=== PATIENT | female | born 1990 | race Caucasian/White ===

== ENCOUNTER 2016-03-18 13:56 | Emergency (ER) | payer OTHER ==
[2016-03-18 13:59] VITALS: BP 100/67; PULSE 117; RESP 17; TEMP 98.6; O2SAT 95
[2016-03-18] MEDS ORDERED: AMOX875T PO (15:36)
--- NOTE | 2016-03-18 15:37 | PD ---
HPI Chief Complaint: Cold / Flu Symptoms Time Seen by Provider: 15:22 Travel History International Travel<30 days: No Contact w/Intl Traveler<30days: No Traveled to known affect area: No History of Present Illness HPI Patient is a 25-year-old female who presented to emergency for evaluation of cough, nasal congestion, sore throat. She states her symptoms have been ongoing for 3-4 days. She did she has trialed [id number] medications with no relief of her symptoms. She denies any fevers, chills, nausea, vomiting , chest pain, shortness of breath, abdominal pain or diarrhea. [facility] Past Medical History Medical History: Denies Significant Hx Social History Alcohol Use: No Tobacco Use: No Substance Use: No Allergies-Medications (Allergen,Severity, Reaction): Coded Allergies: No Known Allergies (Unverified , 03/18/16) Reported Meds & Prescriptions Reported Meds & Active Scripts Active Amoxicillin 875 Mg Tab 875 Mg PO BID 10 Days Review of Systems Except as stated in HPI: all other systems reviewed are Neg General / Constitutional: No: Fever, Chills HENT: Positive: Sore Throat, Rhinitis, Congestion, No: Headaches, Neck Pain, Earache Cardiovascular: No: Chest Pain or Discomfort Respiratory: Positive: Cough, No: Shortness of Breath, Wheezing, Sneezing Gastrointestinal: No: Nausea, Vomiting, Diarrhea, Abdominal Pain Physical Exam Narrative GENERAL: Well-nourished, well-developed patient. SKIN: Warm and dry. HEAD: Normocephalic. ENT: Mucosa pink and moist. No erythema or exudates. No uvular edema. No uvular , palatal, or tonsillar deviation. Airway patent. Nasal turbinates appear edematous with clear drainage without nasal blood, purulent drainage or septal hematoma. Posterior pharynx has cobblestoning appearance EYES: No scleral icterus. No injection or drainage. NECK: Supple, trachea midline. No JVD or lymphadenopathy. CARDIOVASCULAR: Regular rate and rhythm without murmurs, gallops, or rubs. RESPIRATORY: Breath sounds equal bilaterally. No accessory muscle use. GASTROINTESTINAL: Abdomen soft, non-tender, nondistended. MUSCULOSKELETAL: No cyanosis, or edema. BACK: Nontender without obvious deformity. No CVA tenderness. Data Data Last Documented VS Vital Signs Date Time Temp Pulse Resp B/P Pulse Ox O2 Delivery O2 Flow Rate FiO2 1/4/17 13:59 98.6 117 17 100/67 95 Room Air MDM Medical Decision Making Medical Screen Exam Complete: Yes Emergency Medical Condition: Yes Interpretation(s) Vital Signs Date Time Temp Pulse Resp B/P Pulse Ox O2 Delivery O2 Flow Rate FiO2 03/18/16 13:59 98.6 117 17 100/67 95 Room Air Differential Diagnosis Bronchitis at his versus viral URI versus pneumonia versus pharyngitis versus other Narrative Course Patient is a 25-year-old female who presented to emergency for evaluation of nasal congestion cough, sore throat. She appears well, resting comfortably working on her laptop. Her physical examination is most consistent with a viral upper respiratory infection. Patient was encouraged to continue with symptomatic management. Patient requested a note for work today. Her vital signs are stable, she was tachycardic upon initial presentation but her heart rate is now 85. Patient was advised to follow-up with the primary doctor or return to emergency department for any new or worsening symptoms. Patient verbalized understanding of these instructions. Patient is stable for discharge. Diagnosis Primary Impression: Viral URI with cough Referrals: Primary Care Physician Patient Instructions: General Instructions, Upper Respiratory Infection (ED) Additional Instructions: Follow-up with a primary doctor Return to emergency department for any new or worsening symptoms Continue with symptomatic management [id number] Sudafed or Mucinex DM or similar agent Med/Other Pt SpecificInfo: Prescription(s) given Scripts Amoxicillin 875 Mg [id number] Mg PO BID 10 Days Ref 0 Prov:Jamee Sung 03/18/16 Disposition: 01 DISCHARGE HOME Condition: Stable Jamee Sung Mar 18, 2016 15:37
== END 2016-03-18 15:46 | disposition home or self-care (01) ==
LOC: NEPB 13:56
DX: J06.9 Acute upper respiratory infection, unspecified (principal)
CPT/HCPCS: 99283